=== PATIENT | female | born 1950 | race Hispanic/Latino ===

== ENCOUNTER → 2017-05-15 | Outpatient (CLI) | payer MEDICARE ==
[~2017-05-15] MED LIST: ARIMIDEX1 MG PO; CALCIUM + VITA1 EACH PO; CLINDAMYCIN HC300 MG; VICODIN 5-5001 EACH
--- NOTE | 2017-05-22 10:25 | Diagnostic Imaging Report ---
#[id number] - MGSCRRT #UNILATERAL RIGHT DIGITAL SCREENING MAMMOGRAM WITH CAD: 05/15/2017 CLINICAL: Routine screening. Comparison is made to exams dated: 04/22/2016 mammogram, 03/06/2015 mammogram and 02/04/2014 mammogram - [facility]. Current study contains 2 films. The tissue of the right breast is heterogeneously dense. This may lower the sensitivity of mammography. Current study was also evaluated with a Computer Aided Detection (CAD) system. There are benign calcifications in the right breast. There is a scar marker on the right breast. No significant masses, calcifications, or other findings are seen in the breast. There has been no significant interval change. IMPRESSION: BENIGN There is no mammographic evidence of malignancy. A 1 year screening mammogram is recommended. The patient will be notified by letter of the results. Arturo Lorenz Jr., D.O. cw/:05/19/2017 14:56:54 Duplicating Machine Servicer: Sonia BANSK(R)(M), [facility] letter sent: Compared to Prior B9 Mammogram BI-RADS: 2 Benign
== END ==
LOC: DX 09:35
PROVIDERS: ATTEND Internal Medicine
DX: Z12.31 Encounter for screening mammogram for malignant neoplasm of breast (principal)

== ENCOUNTER → 2018-09-17 | Outpatient (CLI) | payer MEDICARE ==
--- NOTE | 2018-10-01 08:43 | Diagnostic Imaging Report ---
#[id number] - MGSCRRT #UNILATERAL RIGHT DIGITAL SCREENING MAMMOGRAM WITH CAD: 09/17/2018 CLINICAL: Routine screening. Comparison is made to exams dated: 05/15/2017 mammogram and 04/22/2016 mammogram - [facility]. Current study contains 2 films. The tissue of the right breast is heterogeneously dense. This may lower the sensitivity of mammography. Current study was also evaluated with a Computer Aided Detection (CAD) system. There are benign calcifications in the right breast. No significant masses, calcifications, or other findings are seen in the breast. IMPRESSION: BENIGN There is no mammographic evidence of malignancy. A 1 year screening mammogram is recommended. The patient will be notified by letter of the results. LAKSHMI LOWE M.D. ct/penrad:09/28/2018 14:02:24 Senior Environmental Consultant: Sonia LEAHY)(Reed), [facility] letter sent: Normal Exam Mammogram BI-RADS: 2 Benign
== END ==
LOC: MAMMO 10:03
PROVIDERS: ATTEND Internal Medicine
DX: Z12.31 Encounter for screening mammogram for malignant neoplasm of breast (principal)

== ENCOUNTER → 2019-11-20 | Outpatient (CLI) | payer MEDICARE | LOC: MAMMO 11:00 | PROVIDERS: ATTEND Internal Medicine | DX: Z12.31 Encounter for screening mammogram for malignant neoplasm of breast (principal) ==

== ENCOUNTER → 2020-12-24 | Outpatient (CLI) | payer MEDICARE | LOC: MAMMO 14:15 | PROVIDERS: ATTEND Internal Medicine | DX: Z12.31 Encounter for screening mammogram for malignant neoplasm of breast (principal) ==

== ENCOUNTER → 2022-06-08 | Outpatient (CLI) | payer MEDICARE | LOC: MAMMO 11:26 | PROVIDERS: ATTEND Internal Medicine | DX: Z12.31 Encounter for screening mammogram for malignant neoplasm of breast (principal); M85.88 Other specified disorders of bone density and structure, other site | CPT/HCPCS: 77080 ==